=== PATIENT | female | born 1965 | race Caucasian/White ===

== ENCOUNTER 2019-11-24 11:12 | Emergency (ER) | payer OTHER ==
[2019-11-24] MEDS ORDERED: SODIUM CHLORIDE 0.9% 1000ML 1,000 ML IVS ONE (11:36)
[2019-11-24] MEDS ORDERED: ONDANSETRON INJ 4 MG/2 ML VIAL IV ONE (11:36)
[2019-11-24] MEDS ORDERED: MORPHINE SULFATE INJ 10 MG/ML VIAL IV ONE (11:36)
--- NOTE | 2019-11-24 11:39 | ED.PDOC ---
History of Present Illness - General Time Seen by Provider: 11/24/19 11:33 Additional Information: Patient is a 54-year-old female who presents to the ED with chief complaint of left flank pain. Pain began yesterday morning and has been constant, waxing and waning, sharp and dull. She indicates her pain is mild to moderate now but was moderate to severe earlier today. Patient has nausea but no vomiting. Patient has never had this pain before and denies history of kidney stones. Patient denies chest pain, shortness of breath, cough, fever, chills. She indicates she has done nothing to strain herself. Patient denies dysuria or hematuria. Review of Systems - Review of Systems Constitutional: Denies: chills, fever EENTM: States: no symptoms reported Respiratory: States: no symptoms reported. Denies: cough, short of breath Cardiology: States: no symptoms reported. Denies: chest pain, palpitations Gastrointestinal/Abdominal: States: nausea. Denies: abdominal pain, diarrhea, vomiting Genitourinary: States: no symptoms reported. Denies: dysuria, frequency, hematuria Skin: States: no symptoms reported. Denies: rash Neurological: States: no symptoms reported Endocrine: States: no symptoms reported All other Systems: Reviewed and Negative Past Medical History (General) - Patient Medical History Hx Seizures: No Hx Stroke: No Hx Dementia: No Hx Asthma: No Hx of COPD: No Hx Cardiac Disorders: No Hx Congestive Heart Failure: No Hx Pacemaker: No Hx Hypertension: No Hx Thyroid Disease: No Hx Diabetes: No Hx Gastroesophageal Reflux: No Hx Renal Disease: No Hx Cancer: No Hx of HIV: No Hx Hepatitis C: No Hx MRSA: No - Vaccination History Hx Tetanus, Diphtheria Vaccination: Yes Hx Influenza Vaccination: No Hx Pneumococcal Vaccination: No - Social History Hx Tobacco Use: Yes Hx Chewing Tobacco Use: No Hx Alcohol Use: No Hx Substance Use: No Hx Substance Use Treatment: No Hx Depression: No Hx Physical Abuse: No Hx Emotional Abuse: No Hx Suspected Abuse: No - Female History Patient : No Family Medical History - Family History Mother Family History: No Known Living Status: Cause of : COPD Physical Exam - Physical Exam General Appearance: Alert, Well Developed, Well Nourished, Other - Mild distress, uncomfortable Neck: supple Respiratory: chest non-tender, lungs clear, normal breath sounds, no respiratory distress, no accessory muscle use Cardiovascular/Chest: normal peripheral pulses, regular rate, rhythm, no edema, no gallop, no JVD, no murmur Gastrointestinal/Abdominal: normal bowel sounds, non tender, soft, no organomegaly, no pulsatile mass Back Exam: CVA tenderness (L) Extremity: normal range of motion, non-tender, normal inspection, no pedal edema 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 Patient's CT is also unremarkable and shows no evidence of ureteral stones or any other contributing pathology. Patient tells me that when she lays perfectly still in bed her pain is very well controlled and essentially relieved and comes on only when she engages her back muscles to move. Clinically I suspect patient with muscle spasm/strain and I will discharge with analgesics and muscle relaxers and patient to rest and follow-up with her PCP. I discussed with patient return to ED for worsening symptoms, uncontrolled pain, fever, nausea or vomiting. Vital signs stable, patient is NAD and looks clinically well and I believe is safe for discharge with outpatient follow-up. Follow-up instructions, discharge instructions and return to ED precautions discussed with patient. Patient voices understanding and willingness to comply with instru ctions. All laboratory and radiographic results have been discussed with the patient, and all questions answered. Patient is happy with plan. - Results/Orders Results/Orders: 11/24/19 11:57 Urine Culture Stat 11/24/19 13:19 Cyclobenzaprine HCl [Flexeril] 10 mg PO ONCE ONE Laboratory Results - last 24 hr 11/24/19 11/24/19 11/24/19 11:40 11:40 11:57 WBC 11.7 H RBC 5.28 Hgb 15.9 Hct 47.2 H MCV 89.3 MCH 30.1 MCHC 33.7 RDW 13.1 Plt Count 249 MPV 7.5 Absolute Neuts (auto) 8.20 H Absolute Lymphs (auto) 2.40 Absolute Monos (auto) 0.90 H Absolute Eos (auto) 0.10 Absolute Basos (auto) 0.00 Neutrophils % 70.2 Lymphocytes % 20.9 Monocytes % 7.5 Eosinophils % 1.2 Basophils % 0.2 Sodium 141 Potassium 3.9 Chloride 107 Carbon Dioxide 27 Anion Gap 10.9 L BUN 15 Creatinine 0.71 BUN/Creatinine Ratio 21.1 H Random Glucose 96 Serum Osmolality 282.0 Calcium 8.8 Total Bilirubin 0.7 AST 20 ALT 19 Alkaline Phosphatase 87 Serum Total Protein 7.1 Albumin 4.3 Globulin 2.8 Albumin/Globulin Ratio 1.5 Urine Color Yellow Urine Appearance Clear Urine pH 6.0 Ur Specific Collins 1.025 Urine Protein Negative Urine Glucose (UA) Negative Urine Ketones Negative Urine Blood Negative Urine Nitrite Negative Urine Bilirubin Negative Urine Urobilinogen 0.2 Ur Leukocyte Esterase Small H Urine RBC 0-1 Urine WBC 5-10 H Ur Epithelial Cells 3-5 Urine Bacteria 1+ Urine Mucus Small Departure - Departure Clinical Impression: Back muscle spasm, Flank pain, acute Time of Disposition: 13:22 Disposition: Discharge to Home or Self Care Condition: Good Instructions: Low Back Pain (DC), Muscle Spasms (DC) Activity: increase activity as tolerated Referrals: Martin Whitlock III, MD [Primary Care Provider] - 1-5 Days Prescriptions: Acetaminophen W/ Codeine [Tylenol W/ CODEINE #3] 1 ea PO Q6H PRN #20 PRN Reason: Pain Cyclobenzaprine HCl [Flexeril] 10 mg PO Q8H PRN #20 tab PRN Reason: Pain Ibuprofen [Motrin] 600 mg PO Q6H PRN #20 tab PRN Reason: Pain Home Medications: Ambulatory Orders Acetaminophen W/ Codeine [Tylenol W/ CODEINE #3] 1 ea PO Q6H PRN #20 11/24/19 Cyclobenzaprine HCl [Flexeril] 10 mg PO Q8H PRN #20 tab 11/24/19 Ibuprofen [Motrin] 600 mg PO Q6H PRN #20 tab 11/24/19
--- NOTE | 2019-11-24 12:28 | CT ---
EXAMINATION: CT of the abdomen and pelvis without IV contrast INDICATION: Flank pain. COMPARISON: None TECHNIQUE: Axial CT scan of the abdomen and pelvis was obtained without intravenous contrast administration. Coronal and sagittal reformats were provided for further interpretation. This CT exam was performed using one or more of the following dose reduction techniques: Automated exposure control, Adjustment of the mA and/or kV according to patient size, Use of iterative reconstruction technique FINDINGS: The lack of intravenous contrast limits evaluation of solid organs. VISUALIZED LOWER THORAX: Atelectatic changes at the lung bases. Heart is normal in size. LIVER: No intrahepatic lesions. No intrahepatic biliary ductal dilation. GALLBLADDER AND CBD: Normal. PANCREAS: Normal. SPLEEN: Not enlarged. ADRENAL GLANDS: Normal. KIDNEYS AND URETERS: No contour deforming renal mass. No hydronephrosis. No renal stones are present. No evidence of obstructive uropathy. URINARY BLADDER: Normal PELVIS: Uterus is grossly unremarkable. No free fluid in the pelvis. BOWEL: There is extensive diverticulosis noted throughout the colon. No evidence of diverticulitis. Normal appendix No dilated loops of small bowel. No obstruction. Tiny hiatus hernia. AORTA AND VASCULATURE: Minimal atheromatous changes throughout the abdominal aorta. No aneurysm. LYMPH NODES: No bulky lymphadenopathy appreciated. ABDOMINAL WALL: Normal. MESENTERY/ASCITES: Normal. OSSEOUS STRUCTURES: Some mild facet arthropathy within the lower lumbar spine. There is dextroconvex curvature. Symmetric sclerosis noted at the sacroiliac joints. OTHER: N/A IMPRESSION: 1. No acute inflammatory process. Specifically, no evidence of obstructive uropathy. 2. Colonic diverticulosis without evidence of diverticulitis. Electronically signed by: Cynthia Mims MD 11/24/2019 12:27 PM CDT
[2019-11-24] MEDS ORDERED: KETOROLAC TROMETHAMINE INJ 30 MG/ML VIAL IV ONE (13:18)
[2019-11-24] MEDS ORDERED: CYCLOBENZAPRINE HCL 10 MG TAB PO ONE (13:19)
[2019-11-24] MEDS ORDERED: SODIUM CHLORIDE 0.9% 1000ML 500 ML IVS ONE (13:49)
[2019-11-24 14:04] VITALS: BP 109/77; TEMP 98.4; O2SAT 96
== END 2019-11-24 14:00 | disposition home or self-care (01) ==
LOC: ER 11:12
DX: M62.830 Muscle spasm of back (principal); R10.9 Unspecified abdominal pain; R11.0 Nausea; F17.200 Nicotine dependence, unspecified, uncomplicated
CPT/HCPCS: 36415; 74176; 80053; 81001; 85025; 87086; J1885; J2270; J2405; J7030